=== PATIENT | male | born 1965 | race Caucasian/White ===

== ENCOUNTER 2017-07-16 00:10 | Emergency (ER) | payer OTHER ==
[~2017-07-16] VITALS: Ht 170.2 cm; Wt 69.1 kg
[~2017-07-16 00:10] MED LIST: IBUPROFEN800 MG PO
[2017-07-16 00:51] LABS: APPEARANCE CLEAR ((CLEAR)); BILIRUBIN NEGATIVE; BLOOD SMALL; COLOR YELLOW ((YELLOW)); GLUCOSE (STRIP) NEGATIVE; KETONES NEGATIVE; LEUKOCYTES NEGATIVE; NITRITE NEGATIVE; PROTEIN (STRIP) NEGATIVE; SPECIFIC GRAVITY 1.024 (1.000-1.030); UROBILINOGEN 0.2 MG/DL (0.2-1.0)
[2017-07-16 00:53] LABS: HEMATOCRIT 40.2 % (38.0-50.0); HEMOGLOBIN 14.6 G/DL (12.5-16.6); MCH 33.3 PG (29.0-34.0); MCHC 36.3 G/DL (30.0-36.0); MCV 91.6 FL (86-99); PLATELET COUNT 124 K/uL (156-360); RBC DIS.WIDTH-CV 13.2 % (11.8-14.6); RBC DIS.WIDTH-SD 44.4 % (39-53); RED BLOOD COUNT 4.39 M/uL (4.00-5.50); WHITE BLOOD COUNT 7.9 K/uL (4.1-10.2)
[2017-07-16 01:12] LABS: ALBUMIN 3.8 g/dL (3.2-4.8); CHLORIDE 106 mEq/L (99-109); POTASSIUM 4.1 mEq/L (3.7-5.4); SODIUM 138 mEq/L (136-147)
[2017-07-16 01:12] LABS: BACTERIA 1+ /HPF; EPITHELIAL CELLS RARE /HPF; MUCUS 3+ /LPF; RED BLOOD CELLS 0-5 /HPF (0-5); UCUL ADDED? NO; WHITE BLOOD CELLS 0-5 /HPF (0-5)
[2017-07-16 01:14] LABS: GLUCOSE 130 mg/dL (70-99); TOTAL PROTEIN 8.2 g/dL (6.4-8.3)
[2017-07-16 01:16] LABS: TOTAL BILIRUBIN 0.5 mg/dL (0.0-1.0)
[2017-07-16 01:18] LABS: ALKALINE PHOSPHATASE 113 IU/L (3-129); CREATININE 0.9 mg/dL (0.6-1.3); GFR ESTIMATE (CALCULATED) > 59 mL/min/ (58.99-99999)
[2017-07-16 01:19] LABS: AST (GOT) 87 IU/L (2-34); UREA NITROGEN (BUN) 14 mg/dL (9-23)
[2017-07-16 01:20] LABS: DIRECT BILIRUBIN 0.2 mg/dL (0.0-0.3)
[2017-07-16 01:21] LABS: ALT (GPT) 90 IU/L (3-49); LIPASE 19 U/L (1.0-51.0)
[2017-07-16] MEDS ORDERED: PERCOCET 5/31 TABLET PO (02:36)
[2017-07-16] MEDS ORDERED: FLOMAX0.4 MG PO (02:36)
[2017-07-16] MEDS ORDERED: ZOFRAN4 MG PO (02:36)
[2017-07-16 02:54] VITALS: BP 124/72
== END 2017-07-16 03:18 | disposition home or self-care (01) ==
LOC: EME 00:10
DX: N13.2 Hydronephrosis with renal and ureteral calculous obstruction (principal); M51.37 Other intervertebral disc degeneration, lumbosacral region; F17.200 Nicotine dependence, unspecified, uncomplicated
CPT/HCPCS: 74176; 80048; 80076; 81003; 83690; 85027; 99281; 99284; J1885; J2405; J3010